=== PATIENT | male | born 1995 | race Caucasian/White ===

== ENCOUNTER 2018-12-23 13:03 | Emergency (ER) | payer SELFPAY ==
[~2018-12-23] VITALS: Ht 175.3 cm; Wt 81.6 kg
--- NOTE | 2018-12-23 13:12 | NUR ---
MEGA RA 86 Escorted by [employer] "From the park was agitated/combative, making threats- [employer] was called and will be on Psych Hold" PT IS AAOX3, NOT IN RESPIRATORY DISTRESS, V/S STABLE, KEPT RESTED AND COMFORTABLE, WILL CONTINUE TO MONITOR.
--- NOTE | 2018-12-23 13:35 | NUR ---
CALLED LEA, MANAGER ICU, FOR A SITTER.
--- NOTE | 2018-12-23 13:47 | NUR ---
Officer Florinda Security here to check for contraband w/wand Addendum: 12/23/18 at 1350 by BERNABE Cleared by Officer Florinda No contraband found
--- NOTE | 2018-12-23 13:52 | NUR ---
LABS DRAWNED AND SENT TO LAB.
[2018-12-23 13:56] LABS: BASOPHILS % (AUTO) 0.3 % (0.0-2.0); EOSINOPHILS % (AUTO) 0.8 % (0.0-6.0); HEMATOCRIT 44 % (39-51); HEMOGLOBIN 15.1 g/dL (13.5-17.5); LYMPHOCYTES # (AUTO) 1.2 /CMM (0.8-4.8); LYMPHOCYTES % (AUTO) 22.8 % (20.0-44.0); MEAN CORPUSCULAR HGB CONC 35 g/dl (31.0-36.0); MEAN CORPUSCULAR VOLUME 87 fL (80-96); MONOCYTES # (AUTO) 0.6 /CMM (0.1-1.30); MONOCYTES % (AUTO) 10.7 % (2.0-12.0); NEUTROPHILS # (AUTO) 3.5 /CMM (1.8-8.9); NEUTROPHILS % (AUTO) 65.4 % (43.0-81.0); PLATELET COUNT (AUTO) 196 /CMM (150-450); RED BLOOD CELL COUNT(AUTO) 5.04 MIL/uL (4.5-6.0); WHITE BLOOD COUNT (AUTO) 5.3 K/uL (4.3-11.0)
[2018-12-23 14:14] LABS: CALCIUM, SERUM 8.6 mg/dL (8.5-10.1); CARBON DIOXIDE 21 mmol/L (21-32); CHLORIDE 110 mmol/L (98-107); CREATININE 0.9 mg/dL (0.6-1.3); GLUCOSE 112 mg/dL (74-106); POTASSIUM 3.6 mmol/L (3.5-5.1); SODIUM SERUM 143 mmol/L (136-145); UREA NITROGEN, BLOOD 11 mg/dL (7-18)
[2018-12-23 14:31] LABS: ALANINE AMINOTRANSFERASE 30 U/L (12-78); ALBUMIN 3.6 g/dL (3.4-5.0); ALKALINE PHOSPHATASE 73 U/L (46-116); ASPARTATE AMINOTRANSFERASE 21 U/L (15-37); BILIRUBIN,TOTAL 0.1 mg/dL (0.2-1.0); TOTAL PROTEIN, SERUM 6.7 g/dL (6.4-8.2)
[2018-12-23 14:32] LABS: ACETAMINOPHEN < 2 ug/ml (10-30); ALCOHOL, BLOOD < 3 mg/dL (0-0); SALICYLATE 1.2 mg/dL (2.8-20.0)
--- NOTE | 2018-12-23 14:35 | NUR ---
URINE SPECIMEN COLLECTED AND SENT TO LAB.
--- NOTE | 2018-12-23 14:41 | NUR ---
URINE OBTAINED SENT TO THE LAB.
[2018-12-23] MEDS ORDERED: CEFAZOLIN 1 GM in IV D5W 50 ML IV ONE (15:00)
[2018-12-23 15:05] LABS: APPEARANCE,URINE Clear (CLEAR); BILIRUBIN,URINE Negative (NEGATIVE); BLOOD, URINE Negative Ery/uL (NEGATIVE); COLOR,URINE Yellow (YELLOW); KETONES,URINE Negative (NEGATIVE); LEUKOCYTE ESTERASE ,URINE Negative (NEGATIVE); NITRITE, URINE Negative (NEGATIVE); PROTEIN,URINE Negative (NEGATIVE); UGLUCOSE Negative (NEGATIVE); UROBILINOGEN,URINE 0.2 EU/dL (0.2)
--- NOTE | 2018-12-23 15:25 | NUR ---
CALLED GAMA SMYTH FOR PSYCH EVAL, ETA = 1HR.
--- NOTE | 2018-12-23 16:55 | NUR ---
[facility] M[facility] CRISIS TEAM AT BEDSIDE FOR EVAL.
--- NOTE | 2018-12-23 17:20 | NUR ---
Patient discharged to home in stable condition. Written and verbal after care instructions given to Patient's post acute care nurse verbalizes understanding of instruction.
[2018-12-23 17:21] VITALS: BP 110/68
== END 2018-12-23 17:22 | disposition home or self-care (01) ==
LOC: ER 13:05
DX: R45.6 Violent behavior (principal); F84.0 Autistic disorder; F31.9 Bipolar disorder, unspecified; F25.9 Schizoaffective disorder, unspecified
CPT/HCPCS: 36415; 80048; 80076; 80305; 80307; 80329; 81001; 85025; 99284; G0480; 81000-TC; J0690; J7060